=== PATIENT | male | born 1990 | race Caucasian/White ===

== ENCOUNTER 2019-03-18 17:43 | Emergency (ER) | payer SELFPAY ==
[~2019-03-18] VITALS: Ht 170.2 cm; Wt 65.9 kg
[2019-03-18] MEDS ORDERED: ONDANSETRON HCL 4 MG/2 ML VIAL IM ONE (18:00)
[2019-03-18] MEDS ORDERED: MORPHINE SULFATE 4 MG/ML SYRINGE IM ONE (18:00)
[2019-03-18] MEDS: PERTUSS(ACELL),DIPH,TET VAC/PF 0.5 ML VIAL IM ONE ×2 (19:05→19:20)
[2019-03-18] MEDS ORDERED: HYDROCODONE/ACETAMINOPHEN 10-325 MG TABLET PO ONE (20:00)
[2019-03-18 20:11] VITALS: BP 140/93
== END 2019-03-18 20:27 | disposition home or self-care (01) ==
LOC: EMS 17:44
DX: S02.40EA Zygomatic fracture, right side, initial encounter for closed fracture (principal); S00.33XA Contusion of nose, initial encounter; Y04.8XXA Assault by other bodily force, initial encounter; Y93.89 Activity, other specified; Y92.89 Other specified places as the place of occurrence of the external cause; Y99.8 Other external cause status
CPT/HCPCS: 70450; 70486; 72125; 96372; 99284; J0690; J2270; J2405; 90715

== ENCOUNTER 2024-01-09 13:08 | Emergency (ER) | payer SELFPAY ==
[~2024-01-09] VITALS: Ht 170.2 cm; Wt 70.5 kg
[2024-01-09 13:34] VITALS: TEMP 97.8
[2024-01-09 13:52] LABS: BASOPHILS % (AUTO) 0.2 % (0.0-2.0); EOSINOPHILS % (AUTO) 2.4 % (1.0-6.0); HEMATOCRIT 46.4 % (41-53); HEMOGLOBIN 15.8 g/dL (13.5-17.5); LYMPHOCYTES # (AUTO) 1.2 K/uL (1.0-4.8); LYMPHOCYTES % (AUTO) 13.6 % (22.0-44.0); MEAN CORPUSCULAR HEMOGLOBIN 29.4 pg (26.0-34.0); MEAN CORPUSCULAR VOLUME 86 fL (80-100); MONOCYTES # (AUTO) 0.7 K/uL (0.1-1.0); MONOCYTES % (AUTO) 7.8 % (2.0-9.0); NEUTROPHILS # (AUTO) 6.8 K/uL (1.8-7.7); PLATELET COUNT (AUTO) 224 K/uL (150-450); RED BLOOD CELL COUNT(AUTO) 5.37 MIL/uL (4.50-5.90); RED CELL DISTRIBUTION WIDTH 13.1 % (11.5-14.5); WHITE BLOOD COUNT (AUTO) 8.9 K/uL (4.5-11.0)
[2024-01-09 14:01] LABS: ANION GAP 3 mmol/L (8-16); CALCIUM, TOTAL 8.3 mg/dL (8.8-10.5); CARBON DIOXIDE 32 mmol/L (22-29); CHLORIDE 110 mmol/L (98-107); GLOMERULAR FILTR. RATE CALC > 60 mL/min (>60); GLUCOSE,RANDOM 106 mg/dL (70-110); POTASSIUM 4.4 mmol/L (3.5-5.1); SODIUM SERUM 145 mmol/L (136-145); UREA NITROGEN, BLOOD 17 mg/dL (7-18)
[2024-01-09 14:07] LABS: ALANINE AMINOTRANSFERASE 36 U/L (12-78); ALBUMIN 2.8 g/dL (3.4-5.0); ALKALINE PHOSPHATASE 32 U/L (46-116); ASPARTATE AMINOTRANSFERASE 20 U/L (15-37); BILIRUBIN,TOTAL 0.4 mg/dL (0.1-1.0); CREATINE KINASE, TOTAL ONLY 73 U/L (39-308); TOTAL PROTEIN, SERUM 4.9 g/dL (6.4-8.2)
[2024-01-09 14:09] LABS: TROPONIN I-HIGH SENSITIVITY Less Than 4 ng/L (<76)
[2024-01-09 14:20] LABS: B-TYPE NATRIURETIC PEPTIDE 5 pg/mL (0-100)
[2024-01-09 14:21] LABS: ALCOHOL, BLOOD (SERUM) < 3 mg/dL (0-10)
[2024-01-09 15:05] LABS: APPEARANCE,URINE CLEAR (CLEAR); BILIRUBIN,URINE NEGATIVE (NEGATIVE); COLOR,URINE LIGHT YELLOW (YELLOW); GLUCOSE, URINE (UA) NEGATIVE (NEGATIVE); KETONES,URINE TRACE mg/dL (NEGATIVE); LEUKOCYTE ESTERASE ,URINE NEGATIVE (NEGATIVE); NITRATE,URINE NEGATIVE (NEGATIVE); OCCULT BLOOD,URINE NEGATIVE (NEGATIVE); PROTEIN,URINE NEGATIVE (NEGATIVE); SPECIFIC GRAVITIY, URINE 1.007 (1.003-1.030); UROBILINOGEN,URINE <=1.0 mg/dL (<=1.0)
[2024-01-09 15:12] LABS: AMPHET/METH SCREEN,URINE NEGATIVE (NEGATIVE); BARBITURATE SCREEN, URINE NEGATIVE (NEGATIVE); BENZODIAZEPINES SCREEN,URINE NEGATIVE (NEGATIVE); CANNABINOID SCREEN,URINE NEGATIVE (NEGATIVE); COCAINE SCREEN,URINE NEGATIVE (NEGATIVE); METHADONE SCREEN, URINE NEGATIVE (NEGATIVE); OPIATE SCREEN,URINE NEGATIVE (NEGATIVE); PHENCYCLIDINE SCREEN,URINE NEGATIVE (NEGATIVE)
[2024-01-09 15:19] LABS: ALCOHOL, URINE DRUG SCREEN NEGATIVE (NEGATIVE)
[2024-01-09 15:30] VITALS: BP 120/89; PULSE 65; RESP 14
[2024-01-09] MEDS: PB/HYOSCY/ATR/SCOP/LIDO/MAALOX 55 ML BOTTLE PO ONE (15:43)
== END 2024-01-09 16:24 | disposition home or self-care (01) ==
LOC: EMS 13:08
DX: R55 Syncope and collapse (principal)
CPT/HCPCS: 99285; 71045; 80053; 82550; 83880; 84484; 85025; 36415; 93005; 80307; 81003; G0480